=== PATIENT | female | born 1990 | race African-American/Black ===

== ENCOUNTER 2020-04-13 20:03 | Emergency (ER) | payer OTHER, SELFPAY ==
[2020-04-13 20:05] VITALS: BP 148/62; PULSE 92; RESP 16; TEMP 36.8; O2SAT 99
--- NOTE | 2020-04-13 21:30 | PC.NURSE ---
Pt not in room at this time.
== END 2020-04-13 21:30 | disposition left against medical advice (07) ==
PROVIDERS: PCP Obstetrics & Gynecology
DX: L29.9 Pruritus, unspecified (principal)
CPT/HCPCS: 99199

== ENCOUNTER 2020-12-20 09:03 | Outpatient (CLI) | payer OTHER, SELFPAY ==
--- NOTE | ~2020-12-20 | US_ITS ---
EXAMINATION: US OB <= 14 weeks fetus DATE: 12/20/2020 09:36 INDICATION: First trimester dating TECHNIQUE: Real-time pelvic transabdominal and transvaginal ultrasound was performed. COMPARISON: None. FINDINGS: The uterus measures 11.1 x 5.6 x 7.2 cm. There is an intrauterine gestational sac. A yolk sac is identified. heart motion is identified measuring 150 beats per minute (bpm) by M-mode Do ppler. The crown rump length measures 1.3 cm , which correlates with an estimated gestational a ge of 7 weeks and 4 day(s) (+/-) 5 day(s). The right ovary measures 3.2 x 2.7 x 3.2 cm. There is a 2.0 x 1.9 cm cyst with debris in the right ov crescencio. The left ovary measures 1.3 x 2.7 x 1.2 cm. There is normal vascular flow in the ovaries. There is no free fluid in the pelvis. IMPRESSION: 1. Live intrauterine with an estimated gestational age of 7 weeks and 4 day(s) (+/-) 5 day( s) and an estimated delivery date of 08/04/2021. 2. Likely hemorrhagic cyst of the right ovary. Reviewed, dictated and finalized at location A. NT SERVICE AND CONSULTING MANAGER IMPRESSION: 1. Live intrauterine with an estimated gestational age of 7 weeks and 4 day(s) (+/-) 5 day(s) and an estimated delivery date of 08/04/2021. 2. Likely hemorrhagic cyst of the right ovary.
== END 2020-12-20 09:04 | disposition home or self-care (01) ==
LOC: ANHIMG 09:07
PROVIDERS: Visit Provider Obstetrics & Gynecology
DX: Z34.90 Encounter for supervision of normal pregnancy, unspecified, unspecified trimester (principal); Z3A.01 Less than 8 weeks gestation of pregnancy
CPT/HCPCS: 76801

== ENCOUNTER 2021-01-09 09:42 | Emergency (ER) | payer OTHER, SELFPAY ==
--- NOTE | ~2021-01-09 | XR_ITS ---
EXAMINATION: XR chest 1V portable DATE: 01/09/2021 10:21 INDICATION: Shortness of breath. TECHNIQUE: A single frontal view of the chest was obtained. COMPARISON: Chest 2 views 11/16/2019 FINDINGS: The chest demonstrates clear lungs without pneumonia, pleural effusion, or pneumothorax. Th e heart size is normal. IMPRESSION: 1. No acute cardiopulmonary disease. Reviewed, dictated and finalized at location A. E PATROL OFFICER
[2021-01-09 09:50] VITALS: BP 132/70; PULSE 99; RESP 18; TEMP 36.2; O2SAT 100
[2021-01-09 10:44] LABS: Add Urine Microscopic? YES; Appearance Urine Clear (Clear); Bacteria Urine Trace /hpf; Bilirubin Urine Negative (Negative); Blood Urine Negative (Negative); Color Urine Yellow (Yellow); Glucose Urine UA Negative (Negative); Ketones Urine Negative (Negative); Leukocyte Esterase Ur Negative LEU/UL (Negative); Mucus Urine Few /lpf; Nitrate Urine Negative (Negative); Protein Urine Negative (Negative); RBC Urine 0-2 /hpf (0-2); Specific Grav Ur 1.017 (1.001-1.035); Squamous Epithelial Cell Urine Many /hpf (Few); Urobilinogen Urine Negative mg/dL (<2.0); WBC Urine 0-3 /hpf
--- NOTE | 2021-01-09 11:12 | ED.GENADULT ---
HPI - General Adult General Chief complaint: Shortness of Breath/Dyspnea Stated complaint: SOB- 10 weeks Time Seen by Provider: 01/09/21 09:59 Source: patient Mode of arrival: ambulatory Limitations: no limitations History of Present Illness HPI narrative: Patient a 30-year-old female who presents to emergency department for evaluation of mild shortness of breath has been present for 2 weeks noting that she has had a nonproductive cough and had mild scratchy throat which has resolved patient does not take anything for her symptoms on arrival is in no distress does not appear uncomfortable. Patient denies sick contacts. Patient is 10 weeks . Patient is followed by Dr. Pringle. G4. Patient on arrival resting comfortably. Patient denies tobacco abuse or secondhand smoke exposure Related Data Allergies Allergy/AdvReac Type Severity Reaction Status Date / Time No Known Allergies Allergy Unverified 11/16/19 08:37 Review of Systems Review of Systems: All systems reviewed & are unremarkable except as noted in HPI and below PMFSH Past Medical History Medical History No significant past medical history Surgical History Surgical History No significant past surgical history Social History Social History Smoking status: Never smoker Alcohol intake: never Gender identity (if verbalized by the patient): Female Exam Narrative: Exam Narrative: GENERAL: Well-appearing, well-nourished, and in no acute distress. HEAD: Normocephalic, atraumatic. EYES: PERRLA and EOMI. ENT: Nares clear, no rhinorrhea or epistaxis. Mucous membranes moist. CHEST: Clear to auscultation. No respiratory distress. No wheezes rales or rhonchi HEART: Regular rate and rhythm. No murmur heard. Normal peripheral pulses. ABDOMEN: Soft, nontender,distended EXTREMITIES: Normal range of motion. No edema. SKIN: Warm, dry, no rash. NEURO: No focal deficits. Alert and oriented x3. PSYCH: Normal mood and affect. Course Course Emergency Course: Patient in the room in no distress aware of case findings treatment plan diagnosis agreeing to follow-up with primary care and director of sustainability programs as instructed. Vital Signs Vital signs: Vital Signs Temperature 97.1 F L 01/09/21 09:50 Pulse Rate 99 01/09/21 09:50 Respiratory Rate 18 01/09/21 09:50 Blood Pressure 132/70 01/09/21 09:50 Pulse Oximetry 100 01/09/21 09:50 Temperature 97.1 F L 01/09/21 09:50 Pulse Rate 99 01/09/21 09:50 Respiratory Rate 18 01/09/21 09:50 Blood Pressure 132/70 01/09/21 09:50 Pulse Oximetry 100 01/09/21 09:50 Medical Decision Making MDM Narrative Medical decision making narrative: Patient in the room no distress aware of case findings treatment plan diagnosis no hypoxemia no pneumonia resting comfortably in no distress will be discharged home with outpatient follow-up with primary care and director of sustainability programs patient agrees with this plan and feels comfortable Vital Signs Vital Signs: Vital Signs Temperature 97.1 F L 01/09/21 09:50 Pulse Rate 99 01/09/21 09:50 Respiratory Rate 18 01/09/21 09:50 Blood Pressure 132/70 01/09/21 09:50 Pulse Oximetry 100 01/09/21 09:50 Temperature 97.1 F L 01/09/21 09:50 Pulse Rate 99 01/09/21 09:50 Respiratory Rate 18 01/09/21 09:50 Blood Pressure 132/70 01/09/21 09:50 Pulse Oximetry 100 01/09/21 09:50 Lab Data Labs: Lab Results 01/09/21 Range/Units 10:25 Urine Color Yellow (Yellow) Urine Appearance Clear (Clear) Urine pH 6.0 (5.0-9.0) Ur Specific [place] 1.017 (1.001-1.035) Urine Protein Negative (Negative) mg/dL Urine Glucose (UA) Negative (Negative) mg/dL Urine Ketones Negative (Negative) mg/dL Ur Blood (Man) Negative (Negative) Urine Nitrate Negative (N
[2021-01-09 12:18] VITALS: BP 126/80; PULSE 82; RESP 18; O2SAT 100
== END 2021-01-09 12:19 | disposition home or self-care (01) ==
PROVIDERS: Emergency Medicine Emergency Medical Services; Emergency Provider Emergency Medicine
DX: O99.511 Diseases of the respiratory system complicating pregnancy, first trimester (principal); J40 Bronchitis, not specified as acute or chronic; Z3A.10 10 weeks gestation of pregnancy
CPT/HCPCS: 71045; 81001; 81025; 99283

== ENCOUNTER 2021-01-15 14:51 | Outpatient (CLI) | payer OTHER, SELFPAY ==
--- NOTE | ~2021-01-15 | US_ITS ---
EXAMINATION: US OB <= 14 weeks fetus DATE: 01/15/2021 15:21 INDICATION: Normal progesterone levels TECHNIQUE: Real-time transabdominal obstetric ultrasound. FINDINGS: Comparison to ultrasound dated 12/20/2020 The uterus measures 13.2 x 6.7 x 9.3 cm. There is an intrauterine gestational sac, with pole id entified. The crown rump length measures 5.01 cm. heart tones are identified measuring 161 bpm . There is a hemorrhagic cyst of the right ovary, likely complicated corpus luteal cyst measuring 1. 8 cm. IMPRESSION: 1. SL IUP with an EGA of 11 weeks, 2 days (EDC by initial ultrasound of 08/04/2021). Appropriate inter mara growth. 2: Small complicated corpus luteal cyst of the right ovary measuring up to 1.8 cm. Reviewed, dictated and finalized at location A. ING OFFICER IMPRESSION: 1. SL IUP with an EGA of 11 weeks, 2 days (EDC by initial ultrasound of 08/04/20 21). Appropriate interval growth. 2: Small complicated corpus luteal cyst of the right ovary measuring up to 1.8 cm.
== END 2021-01-15 14:52 | disposition home or self-care (01) ==
PROVIDERS: Visit Provider Obstetrics & Gynecology
DX: Z34.91 Encounter for supervision of normal pregnancy, unspecified, first trimester (principal); Z3A.11 11 weeks gestation of pregnancy; R94.7 Abnormal results of other endocrine function studies
CPT/HCPCS: 76801

== ENCOUNTER 2021-02-15 12:36 | Outpatient (CLI) | payer OTHER, SELFPAY ==
--- NOTE | ~2021-02-15 | US_ITS ---
EXAMINATION: US OB follow up DATE: 02/15/2021 13:17 INDICATION: Routine care during early second trimester of . TECHNIQUE: Real-time ultrasound of the pelvis was performed. The interpreting radiologist was not pre sent for the study. COMPARISON: 01/15/2021 FINDINGS: There is a single living fetus in transverse lie. The placenta is posterior and appears to extend ac ross the region of the internal cervical os, either low lying or previa. heart rate is 142 beat s per minute (bpm). The amniotic fluid volume is subjectively normal. The following biometric data were obtained: BPD: 3.4 cm -> 16 weeks 3 days Head circumference: 12.1 cm -> 16 weeks 0 days Abdominal circumference: 9.9 cm -> 16 weeks 0 days Femur length: 1.8 cm -> 15 weeks 3 days These measurements are concordant. Head circumference to abdominal circumference ratio: 1.23 (normal range 1.06-1.34). Estimated weight: 134 g (+/-) 20 g. or 5 oz. (+/-) 1 oz. IMPRESSION: 1. Single living fetus in transverse lie with heart rate of 142 bpm. 2. Posterior placenta which appears either low-lying or previa. Consider further evaluation of the pl acenta with ultrasound later in the second or early third trimester . 3. Estimated weight is 42nd percentile by Hadlock criteria when 08/04/2021 is used as the estima primitivo date of delivery (EDWIGE). Please correlate with clinical information or earlier ultrasounds for mos t accurate EDWIGE. Reviewed, dictated and finalized at location B. IMPRESSION: 1. Single living fetus in transverse lie with heart rate of 142 bpm. 2. Posterior placenta which appears either low-lying or previa. Consider furthe r evaluation of the placenta with ultrasound later in the second or early third trimester . 3. Estimated weight is 42nd percentile by Hadlock criteria when 08/04/2021 is used as the estimated date of delivery (EDWIGE). Please correlate with clinica l information or earlier ultrasounds for most accurate EDWIGE.
== END 2021-02-15 12:37 | disposition home or self-care (01) ==
PROVIDERS: Visit Provider Obstetrics & Gynecology
DX: Z34.90 Encounter for supervision of normal pregnancy, unspecified, unspecified trimester (principal); Z3A.00 Weeks of gestation of pregnancy not specified
CPT/HCPCS: 76816

== ENCOUNTER 2021-03-14 11:02 | Outpatient (CLI) | payer OTHER, SELFPAY ==
--- NOTE | ~2021-03-14 | US_ITS ---
EXAMINATION: US OB follow up DATE: 03/14/2021 11:41 INDICATION: Placenta previa on prior ultrasound, second trimester TECHNIQUE: Real-time ultrasound of the pelvis was performed. The interpreting radiologist was not pre sent for the study. COMPARISON: 02/15/2021 FINDINGS: There is a single living fetus in vertex presentation. The placenta is posterior and 2.9 cm from the internal cervical os. cardiac activity and movement are noted. heart rate is 154 beats per minute (bpm). The amniotic fluid index is subjectively normal. The following biometric data were obtained: Biparietal diameter (BPD): 4.7 cm; head circumference (HC): 17.0 cm; abdominal circumference (AC): 14 .4 cm; femur length (FL): 3.0 cm. These measurements are concordant. Estimated weight is 307 g +/- 46 g, which correlates with the 53rd percentile when 08/04/2021 is used as estimated date of delivery. As single measurements, these parameters are each equal to the following estimated gestational ages w ith ranges of +/- 2 standard deviations: BPD: 20 weeks 3 days +/- 1 weeks 5 days. HC: 19 weeks 5 days +/- 1 weeks 3 days. AC: 19 weeks 5 days +/- 2 weeks 0 days. FL: 19 weeks 4 days +/- 1 weeks 6 days. estimated gestational age based solely on measurements from this exam is 19 weeks 6 days +/- 1 weeks 3 days. IMPRESSION: 1. Single living fetus in vertex presentation. 2. Estimated weight is 307 g +/- 46 g, which correlates with the 53rd percentile when 08/04/2021 is used as estimated date of delivery. 3. Posterior placenta 2.9 cm from the internal cervical os. Reviewed, dictated and finalized at location A. IMPRESSION: 1. Single living fetus in vertex presentation. 2. Estimated weight is 307 g +/- 46 g, which correlates with the 53rd per centile when 08/04/2021 is used as estimated date of delivery. 3. Posterior placenta 2.9 cm from the internal cervical os.
== END 2021-03-14 11:03 | disposition home or self-care (01) ==
PROVIDERS: Visit Provider Obstetrics & Gynecology
DX: Z34.92 Encounter for supervision of normal pregnancy, unspecified, second trimester (principal); Z3A.19 19 weeks gestation of pregnancy
CPT/HCPCS: 76816

== ENCOUNTER 2021-05-14 12:26 | Outpatient (CLI) | payer OTHER, SELFPAY ==
--- NOTE | ~2021-05-14 | US_ITS ---
EXAMINATION: US OB follow up DATE: 05/14/2021 13:03 INDICATION: Routine care abnormal TECHNIQUE: Real-time transabdominal obstetric ultrasound. FINDINGS: Ultrasound dated 03/14/2021 There is a single living fetus in vertex presentation. The placenta is posterior without placenta pr evia. Placental margin measures 6 cm to the cervix. cardiac activity and movement is noted with a heart rate of 150 beats per minute. T he amniotic fluid volume is normal. GRISEL measures 15.5 cm. The following biometric data were obtained: BPD: 70mm corresponds to gestational age 28 weeks 0 days. Head circumference: 250mm corresponds to gestational age 27 weeks 1 days. Abdominal circumference: 247mm corresponds to gestational age 28 weeks 6 days. Femur length: 54mm corresponds to gestational age 28 weeks 3 days. Estimated weight: 1234grams +/- 185grams.] IMPRESSION: 1. Angle living intrauterine and vertex presentation with an estimated gestational age of 28 weeks 2 days by inititial ultrasound. Appropriate interval growth. 2. Normal placenta. 3: Normal GRISEL measures 6 cm. Reviewed, dictated and finalized at location A. IMPRESSION: 1. Angle living intrauterine and vertex presentation with an estimat ed gestational age of 28 weeks 2 days by inititial ultrasound. Appropriate int erval growth. 2. Normal placenta. 3: Normal GRISEL measures 6 cm.
== END 2021-05-14 12:27 | disposition home or self-care (01) ==
LOC: ANHIMG 12:28
PROVIDERS: Visit Provider Obstetrics & Gynecology
DX: Z34.92 Encounter for supervision of normal pregnancy, unspecified, second trimester (principal); Z3A.28 28 weeks gestation of pregnancy
CPT/HCPCS: 76816

== ENCOUNTER 2021-06-13 15:20 | Outpatient (CLI) | payer OTHER, SELFPAY ==
--- NOTE | ~2021-06-13 | US_ITS ---
EXAMINATION: US OB follow up DATE: 06/13/2021 16:14 INDICATION: Routine care. TECHNIQUE: Real-time ultrasound of the pelvis was performed. COMPARISON: Ultrasound 05/14/21, 12/20/2020 FINDINGS: There is a single living fetus in vertex presentation. The placenta is right fundal. heart rat e is 152 beats per minute (bpm). The amniotic fluid index is 12.5 cm, which is normal. The following biometric data were obtained: Biparietal diameter (BPD): 8.0 cm; head circumference (HC): 27.9 cm; abdominal circumference (AC): 27 .5 cm; femur length (FL): 6.2 cm. These measurements are discordant with high cephalic index. Estimated weight is 1798 g +/- 270 g, which correlates with 15th percentile when 08/04/21 is use d as estimated date of delivery. As single measurements, these parameters are each equal to the following estimated gestational ages: BPD: 32 weeks 1 days. HC: 30 weeks 4 days. AC: 31 weeks 4 days. FL: 31 weeks 6 days. estimated gestational age based solely on measurements from this exam is 31 weeks 4 days +/- 2 weeks 1 days. IMPRESSION: 1. Single living fetus in vertex presentation. 2. Estimated weight is 1798 g +/- 270 g, which correlates with 15th percentile when 08/04/21 is used as estimated date of delivery. This date was set by ultrasound on 12/20/2020. 3. High cephalic index. Reviewed, dictated and finalized at location A. IMPRESSION: 1. Single living fetus in vertex presentation. 2. Estimated weight is 1798 g +/- 270 g, which correlates with 15th perc entile when 08/04/21 is used as estimated date of delivery. This date was set by ultrasound on 12/20/2020. 3. High cephalic index.
== END 2021-06-13 15:21 | disposition home or self-care (01) ==
LOC: ANHIMG 15:21
PROVIDERS: Visit Provider Obstetrics & Gynecology
DX: O28.3 Abnormal ultrasonic finding on antenatal screening of mother (principal); Z3A.00 Weeks of gestation of pregnancy not specified
CPT/HCPCS: 76816

== ENCOUNTER 2021-07-09 18:55 | Observation (INO) | payer OTHER, SELFPAY ==
[2021-07-09 18:46] VITALS: BP 149/85; PULSE 108; RESP 22; TEMP 36.7; O2SAT 98
--- NOTE | 2021-07-09 18:53 | PC.NURSE ---
REPORT CALLED TO ELAINE JIMENEZ IN OB, PT TAKEN DIRECTLY TO OB PER W/C.
[2021-07-09 19:16] VITALS: BP 120/71; PULSE 91
[2021-07-09 19:30] VITALS: BP 126/82; PULSE 101
[2021-07-09 19:45] VITALS: BP 129/85; PULSE 118; BMI 30.2
[2021-07-09 20:00] VITALS: BP 118/68; PULSE 100
--- NOTE | 2021-07-16 08:04 | PM.OBTRLD ---
OB - Triage/Final Diagnosis Visit Information Reason for evaluation: threatened labor Comments/Additional reasons for admission: I have assessed the risk for this patient, Tiffaniechristie Herr, and determined that she would benefit from observation care.
== END 2021-07-09 22:08 | disposition home or self-care (01) ==
PROVIDERS: Admitting Provider Obstetrics & Gynecology; Visit Provider Obstetrics & Gynecology
DX: O47.03 False labor before 37 completed weeks of gestation, third trimester (principal); Z3A.36 36 weeks gestation of pregnancy
CPT/HCPCS: G0378; G0379

== ENCOUNTER 2021-07-17 11:31 | Outpatient (RCR) | payer OTHER, SELFPAY ==
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
[2021-07-17 14:10] VITALS: BP 130/60; PULSE 101
== END 2021-08-12 07:32 | disposition home or self-care (01) ==
LOC: ANHOBOP 11:31
PROVIDERS: Visit Provider Obstetrics & Gynecology
DX: O26.893 Other specified pregnancy related conditions, third trimester (principal); Z3A.37 37 weeks gestation of pregnancy; V89.2XXA Person injured in unspecified motor-vehicle accident, traffic, initial encounter
CPT/HCPCS: 59025; 76819

== ENCOUNTER 2021-07-20 12:15 | Inpatient (IN) | payer OTHER, SELFPAY ==
[2021-07-20] VITALS (31 sets, daily range): BP systolic 107–154; BP diastolic 61–138; PULSE 78–152; RESP 16; TEMP 36.6–37.1; O2SAT 98–99; BMI 30.6
--- NOTE | 2021-07-20 12:15 | LDADM ---
This patient, Tiffanie Herr, was admitted to Labor/Delivery/Recovery 105 on 07/20/21 at 12:15. Plans for labor, pain management and were discussed with patient. Patient/family oriented to hospital policies and general routines including ID bracelet, bed and alarms, visiting hours, pain management, procedures, bathroom and other care routines, personal items, smoking policy, room service/diet and guest tray routines, infant security routines, and visiting hours. Patient/Family are encouraged to report perceived risks to care and to ask questions if they do not understand what they are told or what they should do. See OBIX for further documentation.
[2021-07-20] MEDS: LACTATED RINGERS 1,000 ML 125 ML IV CONT (12:49)
[2021-07-20] MEDS: AMPICILLIN 2 GM/NS 100 ML 2 GM/100 ML BAG IVPB (12:50)
[2021-07-20 13:06] LABS: Basophils Percent Auto 0.1 % (0.2-1.2); Eosinophils Absolute Auto 0.1 K/mm3 (0-0.3); Eosinophils Percent Auto 1.8 % (0-4.4); Hematocrit 38.9 % (37.0-47.0); Hemoglobin 12.4 g/dL (12.0-15.0); Immature Granulocyte Absolute 0.05 K/mm3 (0.00-0.031); Immature Granulocyte Percent A 0.7 % (0-0.5); Lymphocytes Absolute Auto 1.07 K/mm3 (0.9-3.2); Lymphocytes Percent Auto 15.6 % (18.3-44.2); Mean Corpuscular HGB Conc 31.9 g/dl (32-36); Mean Corpuscular Volume 87.8 fl (80-100); Mean Platelet Volume 9.9 fl (7.4-10.4); Monocytes Absolute Auto 0.5 K/mm3 (0.1-0.6); Monocytes Percent Auto 7.5 % (2.6-8.5); Neutrophils Absolute Auto 5.1 K/mm3 (1.3-6.7); Neutrophils Percent Auto 74.3 % (45.5-73.1); Platelet Count Result 225 k/mm3 (150-375); Red Blood Count 4.43 M/mm3 (4.2-5.4); Red Cell Distribution Width 14.3 % (11.5-14.5); White Blood Count 6.8 K/mm3 (4.5-10.0)
[2021-07-20 13:55] LABS: HIV 1/2 Ab P24 Ag Result Negative (Negative)
[2021-07-20] MEDS: OXYTOCIN 30 UNITS/NS 500 ML 30 UNITS/500 ML BAG IV CONT (14:55)
--- NOTE | 2021-07-20 17:01 | WPDHPUPDATE1 ---
History and Physical Update Update Date/Time: 07/20/21 17:01 History and Physical has been reviewed, including an updated exam of the patient. There are NO changes in the patient's condition. Risks, benefits, and alternatives have been discussed and questions answered. Patient agrees to proceed with procedure.
--- NOTE | 2021-07-20 17:01 | WPDOBADMIT ---
Obstetrics - Admit Note Admission Note: record reviewed. No pertinent additions to the history and/or any subsequent changes in the physical findings that are not consistent with the expected course of the were found. Additions to the history and/or subsequent changes in the physical findings follow. None.
--- NOTE | 2021-07-20 17:01 | PM.OBPRVD ---
OB - Delivery Note Procedure Route of delivery: Episiotomy description: None Laceration Description: None Specimen: No Quantitative Blood Loss (ml): 200 Anesthesia type: None Disposition: floor Narrative: In prepped and draped usual manner this procedure. Maternal expulsive efforts delivered vertex rest of baby delivered without difficulty. Cord was clamped and cut and placenta delivered spontaneously as well. Cervix vagina vulva were inspected with no lacerations or tears. Uterus was well contracted with no significant bleeding. Immediate postop condition of mother baby both were excellent. [place] Baby Weeks of gestation at delivery: 38 Infant gender: Male
[2021-07-20] MEDS: OXYTOCIN 30 UNITS/NS 500 ML 30 UNITS/500 ML BAG 125 UNITS IV CONT (17:20)
[2021-07-20] MEDS: IBUPROFEN 600 MG TABLET PO (17:26)
[2021-07-20 17:33] LABS: Amphetamine Screen Urine Negative (Negative); Barbiturate Screen Urine Negative (Negative); Benzodiazepines Screen Urine Negative (Negative); Cannabinoid Screen Urine Negative (Negative); Cocaine Screen Urine Negative (Negative); Methadone Screen Urine Negative (Negative); Opiate Screen Urine Negative (Negative); Phencyclidine Screen Urine Negative (Negative)
[2021-07-20] MEDS: WITCH HAZEL 40 PADS 1 PAD TOPICAL (19:26)
[2021-07-20] MEDS: BENZOCAINE 20% AER SPR (*SP) 56 GM CAN 1 SPRAY TOPICAL (19:27)
--- NOTE | 2021-07-20 19:39 | OBPPTRN ---
Patient transferred to post room #282 via wheelchair. Support person present. Oriented to unit, room, information board, rooming in, admission packet and security measures. Patient verbalizes understanding.
[2021-07-20] MEDS: ACETAMINOPHEN 325 MG TABLET 650 MG PO (21:51)
[2021-07-21] MEDS: IBUPROFEN 600 MG TABLET PO ×3 (00:32→17:07)
[2021-07-21 04:00] VITALS: BP 115/73; PULSE 83; RESP 16; TEMP 36.9; O2SAT 97
[2021-07-21] MEDS: ACETAMINOPHEN 325 MG TABLET 650 MG PO ×3 (04:02→17:06)
[2021-07-21 04:19] LABS: Hematocrit 30.2 % (37.0-47.0); Hemoglobin 9.7 g/dL (12.0-15.0)
[2021-07-21 09:45] VITALS: BP 130/72; PULSE 96; RESP 18; TEMP 36.6; O2SAT 100
[2021-07-21] MEDS: DOCUSATE SODIUM 100 MG CAPSULE PO ×2 (09:45→17:08)
[2021-07-21] MEDS: MULTIVIT/MIN/PREN/FOL AC/IRON TABLET 1 TAB PO (09:46)
[2021-07-21] MEDS: POLYSACCHARIDE IRON COMPLEX 150 MG CAPSULE PO ×2 (09:46→17:07)
--- NOTE | 2021-07-21 11:46 | PM.OBDSVD ---
DS: Admitting Diagnosis Discharge Date 07/22/2021 Admitting Diagnosis OB - DS: Summary OB Procedures : None OB Procedures Intrapartum: Spontaneous Vag Delivery OB Procedures: : None Time Spent with Patient Time attestation: Total time spent providing and/or coordinating discharge services: DS: Data Data Completed and Pending Labs on day of discharge: Labs from last 24 hours 07/21/21 07/20/21 07/20/21 04:02 17:03 12:51 WBC RBC Hgb 9.7 L Hct 30.2 L MCV MCH MCHC RDW Plt Count MPV Immature Gran % (Auto) Neut % (Auto) Lymph % (Auto) Baker % (Auto) Eos % (Auto) Baso % (Auto) Lymph # (Auto) Baker # (Auto) Eos # (Auto) Baso # (Auto) Abs Immat Gran (auto) Absolute Neuts (auto) Absolute Nucleated RBC Nucleated RBC % Urine Opiates Screen Negative Urine Methadone Screen Negative Ur Barbiturates Screen Negative Ur Phencyclidine Scrn Negative Ur Amphetamine Screen Negative U Benzodiazepines Scrn Negative Urine Cocaine Screen Negative U Cannabinoids Screen Negative RPR HIV 1&2 Ab/P24 Ag 4thGn Negative Blood Type Antibody Screen 07/20/21 07/20/21 07/20/21 12:51 12:51 12:51 WBC 6.8 RBC 4.43 Hgb 12.4 Hct 38.9 MCV 87.8 MCH 28.0 MCHC 31.9 L RDW 14.3 Plt Count 225 MPV 9.9 Immature Gran % (Auto) 0.7 H Neut % (Auto) 74.3 H Lymph % (Auto) 15.6 L Baker % (Auto) 7.5 Eos % (Auto) 1.8 Baso % (Auto) 0.1 L Lymph # (Auto) 1.07 Baker # (Auto) 0.5 Eos # (Auto) 0.1 Baso # (Auto) 0.0 Abs Immat Gran (auto) 0.05 H Absolute Neuts (auto) 5.1 Absolute Nucleated RBC 0.0 Nucleated RBC % 0.0 Urine Opiates Screen Urine Methadone Screen Ur Barbiturates Screen Ur Phencyclidine Scrn Ur Amphetamine Screen U Benzodiazepines Scrn Urine Cocaine Screen U Cannabinoids Screen RPR Pending HIV 1&2 Ab/P24 Ag 4thGn Blood Type A Positive Antibody Screen Negative Discharge Plan Discharge Discharging Clinician: Erwin Bryant Patient Disposition: Home, Self-Care Activity: as tolerated Diet: as tolerated and regular Discharge Instructions: Education: Mom and Baby Guide Given to: Mother Follow-Up: Call your delivering provider's office for an appointment to be seen in: 3 Weeks Mom and baby should come to the [facility] for the follow-up appointment. Appointment Date/Time: July at 10:00 am What to expect at your follow-up visit: Blood Pressure Check Physical Assessment Call [phone] if you are unable to keep your appointment time. BREAST CARE: * Wear a snug supportive bra. * For engorgement discomfort: Breast Feeding: * Apply warm moist washcloths * Express milk as needed to relieve engorgement * Wear loose clothing Bottle Feeding: * May apply ice packs * For sore nipples: * Identify correct latch-on * Apply warm moist washcloths before and after nursing * Air dry nipples after nursing * May apply Lansinoh cream to nipples EPISIOTOMY/PERINEAL CARE: * Until bleeding stops, use your fahad bottle after urinating * Change your pad frequently throughout the day ACTIVITY: * Rest as much as possible. * Do not exercise or lift anything heavier than your baby (such as laundry or other children.) * Avoid stairs or driving as much as possible. * Do not put anything into the vagina. No douching, tampons, or sexual activity until seen by physician. NOTIFY PHYSICIAN IF YOU HAVE ANY QUESTIONS OR IF ANY OF THE FOLLOWING SYMPTOMS OCCUR: * If your episiotomy or incision becomes red, swollen, or more painful than what you have experienced in the hospital. * If your vaginal bleeding becomes foul smelling. * If your vaginal bleeding becomes mo
--- NOTE | 2021-07-21 12:59 | PC.NURSE ---
Addendum entered by Yair Yoon RN 07/21/21 13:01: actual time of note was 0830 Original Note: PT introductions made and plan of care discussed per post , pain management, breast feeding, daily care activities. PT verbalized understanding of such care. PT recipient of such instructions and education this shift and no barriers to learning identified at this time. PT received instructions per one to one instructions, mom baby care guide and demonstration and pt verbalized understanding of such care.
[2021-07-21 17:15] VITALS: BP 132/76; PULSE 80; PULSE 92; RESP 16; RESP 18; TEMP 36.8; O2SAT 100
[2021-07-21 19:15] VITALS: BP 123/74; PULSE 99; RESP 16; TEMP 37.1
[2021-07-22] MEDS: IBUPROFEN 600 MG TABLET PO (06:04)
[2021-07-22 08:00] VITALS: BP 131/77; PULSE 87; RESP 18; TEMP 36.6
--- NOTE | 2021-07-22 08:00 | PC.NURSE ---
Patient was given the opportunity to view the discharge video Mother & Baby Care, The First Two Weeks and to ask questions. Patient declined viewing the video and has been given the mother/baby guide for home reference.
[2021-07-22] MEDS: DOCUSATE SODIUM 100 MG CAPSULE PO (08:34)
[2021-07-22] MEDS: MULTIVIT/MIN/PREN/FOL AC/IRON TABLET 1 TAB PO (08:34)
[2021-07-22] MEDS: WITCH HAZEL 40 PADS 1 PAD TOPICAL (08:35)
[2021-07-22] MEDS: BENZOCAINE 20% AER SPR (*SP) 56 GM CAN 1 SPRAY TOPICAL (08:35)
[2021-07-22] MEDS: LANOLIN (LANSINOH) 7.5 GM CREAM 1 APPLIC TOPICAL (08:35)
[2021-07-22] MEDS: POLYSACCHARIDE IRON COMPLEX 150 MG CAPSULE PO (08:35)
[2021-07-22] MEDS: ACETAMINOPHEN 325 MG TABLET 650 MG PO (08:39)
[2021-07-22 09:29] LABS: Rapid Plasma Reagin Non-Reactive (NonReactive)
--- NOTE | 2021-07-22 10:30 | PC.NURSE ---
Self care and infant care discharge instructions given to pt. including follow up visit date and time. Pt. verbalized understanding. No questions or concerns voiced. Very pleasant and cooperative. FOB at side.
--- NOTE | 2021-07-22 12:15 | PC.NURSE ---
Mother called out for assist with feeding. Mother reports infant is sleepy and makes eager attempts to latch with good bursts of nursing for a few seconds and will fall asleep. will freq. cry and refuse to latch. Mother has made attempts and is supplementing each feeding. Discussed establishing in the late may be more difficult due to their immaturity, infant may be less alert, have less stamina, and have greater difficulty with latch, suck, and swallow. ?s feeding may impact mother?s milk supply, pumping may need to be initiated /continued until milk supply is well established and infant is able to effective without supplementation. is able to freely thrust tongue past gum ridge and flange both lips. Skin is intact on both nipples, no redness and bruising noted. Nipple care reviewed of lanolin after feedings, warm compresses as needed, gel pads provided and reviewed care and cleaning. Reviewed feeding cues, frequencies, duration of feedings, feeding elimination flow sheet, and signs of adequate intake. Demonstrated stimulation techniques to wake infant for feeding. Assisted with infant to breast. Reviewed positioning/alignment in cross cradle, holding breast in ?U? hold and guided asymmetrical latch on. Reviewed rational for each. After several attempts able to latch correctly. Infant nursed eagerly with steady draws and occasional swallowing noted for bursts followed with long pausing. Reviewed signs of a correct latch, effective nursing and suck swallow ratio. Infant was able to maintain latch without discomfort to mother. Suggested mother stimulate while feeding to increase stimulate, increase intake and to assist with maintaining deep latch. Demonstrated how to adjust latch more deeply while feeding if needed Discussed the difference of effective vs ineffective feeding. Reviewed infant is latching with good burst of suckling, he is not feeding consistently with adequate milk transfer at this time and continues to need to be supplement after . Feeding options discussed, Feeding Plan is for mother to put infant to breast each feeding for up to 15 minutes, then pace feed supplement 25 mls and pump for 10-15 minutes. Parents are comfortable with supplementation and pumping. Discussed increasing supplementation as infant requires to satisfactions. Reviewed paced feeding and suggested to stop when infant is satisfied, as long as infant is having required output. With increased supplementation may not want to feed for 4 hours. Mother will continue to pump on feeding schedule and will increase session to 20 minutes if pumping every 4 hours. Reviewed once mother?s milk is established and infant is effectively feeding infant may have increased intake with nursing. If is effective feeding with long draws and frequent swallowing noted , infant may be ready to decrease/discontinue supplementation. Advised not to discontinue supplement until ICP, Follow-Up RN or LC has a pre/post weighted evaluation of feeding. Reviewed transition to breast milk, signs of adequate intake, and engorgement/relief. Instructed to call ICP if intake/output less than required. Reviewed regular medications mother is taking. Information provided per Aniya. Reviewed community resources on the [employer] website and in the Mom[employer]Baby guide. Information on outpatient services provided. Mother has no further questions at this time. Assisted mother with a double electric pump thru her insurance. Instructions given on breast pump care and usage, pumping schedule, nipple care, and collection and storage of breast milk. Encouraged [id number], breast massage and manual expression to stimulate supply. Assessed patient for correct flange size, placement and draw. Patient verbalizes and demonstrates understanding of instru
[2021-07-25 10:18] VITALS: BP 124/81; PULSE 82; RESP 18; TEMP 36.9; O2SAT 100
--- NOTE | 2021-08-07 18:14 | WPDHPUPDATE1 ---
History and Physical Update Update Date/Time: 08/07/21 18:14 History and Physical has been reviewed, including an updated exam of the patient. There are NO changes in the patient's condition. Risks, benefits, and alternatives have been discussed and questions answered. Patient agrees to proceed with procedure.
== END 2021-07-22 14:00 | disposition home or self-care (01) | DRG 560 ==
LOC: ANHLDR 12:33 → ANHOB2 20:39
PROVIDERS: Admitting Provider Obstetrics & Gynecology; Visit Provider Obstetrics & Gynecology
DX: O99.824 Streptococcus B carrier state complicating childbirth (principal); O76 Abnormality in fetal heart rate and rhythm complicating labor and delivery; Z3A.37 37 weeks gestation of pregnancy; Z37.0 Single live birth
CPT/HCPCS: 36415; 80307; 85014; 85018; 85025; 86592; 86703; 86850; 86900; 86901; A9270; G0432; J0290; J2590; J7120

== ENCOUNTER 2021-11-09 00:42 | Emergency (ER) | payer OTHER, SELFPAY ==
[2021-11-09 00:47] VITALS: BP 126/74; PULSE 87; RESP 18; TEMP 36.4; O2SAT 98
--- NOTE | 2021-11-09 01:40 | ED.GENADULT ---
HPI - General Adult General Chief complaint: Upper Respiratory Infection Stated complaint: Flu like symptoms Time Seen by Provider: 11/09/21 01:10 History of Present Illness HPI narrative: 31-year-old female presenting to the emergency department for evaluation of flulike symptoms. Patient states she developed a cough yesterday. The cough did cause her to have a posttussive emesis. Patient states she has also had some diarrhea. Upon arrival to the emerge department patient denies any nausea vomiting or diarrhea. Patient denies any shortness of breath. Patient has had no significant coughing in the ED. Patient is not vaccinated Related Data Home Medications Medication Instructions Recorded Confirmed prenat.vits,shashi,[id number] 1 tablet PO DAILY 07/17/21 07/20/21 Allergies Allergy/AdvReac Type Severity Reaction Status Date / Time metronidazole [From Flagyl] Allergy Nausea and Verified 11/09/21 01:06 Vomiting Review of Systems Review of Systems: CONSTITUTIONAL: Subjective fever/chills EYES: Denies visual changes, redness, or discharge. ENT: Denies rhinorrhea, congestion, sore throat, or otalgia. CARDIOVASCULAR: Denies chest pain, palpitations, or edema. RESPIRATORY: Cough. GASTROINTESTINAL: Denies abdominal pain, nausea. Did have an episode of posttussive emesis and episode of diarrhea GENITOURINARY: Denies dysuria or hematuria. SKIN: Denies rash or itching. MUSCULOSKELETAL: Denies back pain, joint pain. Patient does report myalgias and body aches. NEUROLOGIC: Denies headache, numbness, or weakness. PSYCHIATRIC: Denies anxiety or depression. PMFSH Past Medical History Medical History No significant past medical history Surgical History Surgical History No significant past surgical history Social History Social History Smoking status: Never smoker Alcohol intake: never Substance use: never Gender identity (if verbalized by the patient): Female Spiritual care concerns: No Exam Narrative: APPEARANCE: Well appearing, no pain in distress, well-nourished. HEAD: normocephalic, atraumatic. EYES: PERRLA/EOMI, conjunctivae clear. NOSE: Normal no drainage EARS:TMS clear with good light reflex. THROAT: Pharynx clear, no exudate. NECK: Supple. No adenopathy, no masses. RESPIRATORY: Airway patent, respirations nonlabored. Clear to auscultation bilaterally, no rales, rhonchi, wheezing. CARDIOVASCULAR: Regular rate and rhythm without murmurs rubs or gallops. ABDOMINAL: Soft, nontender, nondistended, normal bowel sounds MUSCULOSKELETAL: Moves all extremities. Strength/ROM intact, No edema, No calf tenderness. NEURO: Alert. Cranial nerves II through XII intact. Good gait. Good coordination SKIN: Warm, dry. Normal Color PSYCHIATRIC: Normal affect/mood. Course Vital Signs Vital signs: Vital Signs Temperature 97.6 F 11/09/21 00:47 Pulse Rate 87 11/09/21 00:47 Respiratory Rate 18 11/09/21 00:47 Blood Pressure 126/74 11/09/21 00:47 Pulse Oximetry 98 11/09/21 00:47 Temperature 97.6 F 11/09/21 00:47 Pulse Rate 92 11/09/21 02:05 Respiratory Rate 16 11/09/21 02:05 Blood Pressure 135/85 11/09/21 02:05 Pulse Oximetry 100 11/09/21 02:05 Medical Decision Making Vital Signs Vital Signs: Vital Signs Temperature 97.6 F 11/09/21 00:47 Pulse Rate 87 11/09/21 00:47 Respiratory Rate 18 11/09/21 00:47 Blood Pressure 126/74 11/09/21 00:47 Pulse Oximetry 98 11/09/21 00:47 Temperature 97.6 F 11/09/21 00:47 Pulse Rate 92 11/09/21 02:05 Respiratory Rate 16 11/09/21 02:05 Blood Pressure 135/85 11/09/21 02:05 Pulse Oximetry 100 11/09/21 02:05 Lab Data Lab results reviewed: Yes I reviewed the patient's lab results. Labs: Lab Results 11/09/21 Range/Units 01:19
[2021-11-09 02:05] VITALS: BP 135/85; PULSE 92; RESP 16; O2SAT 100
== END 2021-11-09 02:04 | disposition home or self-care (01) ==
PROVIDERS: Emergency Provider Emergency Medicine
DX: R05.9 Cough, unspecified (principal); Z20.822 Contact with and (suspected) exposure to COVID-19
CPT/HCPCS: 87804; 99283; C9803; U0003; U0005

== ENCOUNTER 2022-11-07 15:02 | Emergency (ER) | payer OTHER, SELFPAY ==
[2022-11-07 15:06] VITALS: BP 138/71; PULSE 73; RESP 13; TEMP 37.1; O2SAT 100
[2022-11-07 15:46] LABS: Influenza A QL RT-PCR Negative (Negative); Influenza B QL RT-PCR Negative (Negative); RSV RNA, RT-PCR Negative (Negative); SARS-CoV-2 RNA PCR Negative
--- NOTE | 2022-11-07 17:30 | ED.URI ---
HPI - URI/Sore Throat General Chief Complaint: Upper Respiratory Infection Stated Complaint: cough, trouble breathing Time Seen by Provider: 11/07/22 16:24 History of Present Illness HPI Narrative: Patient is a 32-year-old female who presents ER with cough. Ongoing for last week. Worse when she enters cold air. She feels like she coughs the point that she has trouble breathing. Has occasional wheezing. She has sinus congestion and sore throat. No chest pain or chest pressure. Has history of bronchitis and is otherwise healthy. Related Data Home Medications Medication Instructions Recorded Confirmed prenat.vits,shashi,[id number] 1 tablet PO DAILY 07/17/21 07/20/21 Allergies Allergy/AdvReac Type Severity Reaction Status Date / Time metronidazole [From Flagyl] Allergy Nausea and Verified 11/09/21 01:06 Vomiting Review of Systems Review of Systems: All systems reviewed & are unremarkable except as noted in HPI and below Constitutional: Constitutional: Denies chills, Denies fatigue and Denies fever(s) Cardiovascular: Cardiovascular: Denies chest pain, Denies rapid heart rate and Denies radiating jaw, neck or arm pain Respiratory: Respiratory: Denies chest congestion, Reports cough, Reports dyspnea and Reports wheezing Gastrointestinal: Gastrointestinal: Denies abdominal pain, Denies nausea and Denies vomiting PMFSH Past Medical History Medical History No significant past medical history Surgical History Surgical History No significant past surgical history Social History Social History Smoking status: Never smoker Alcohol intake: never Substance use: never Gender identity (if verbalized by the patient): Female Spiritual care concerns: No Exam Narrative: GENERAL: Well-appearing, well-nourished, and in no acute distress. HEAD: Normocephalic, atraumatic. ENT: Mucous membranes moist. CHEST: Clear to auscultation. No respiratory distress. HEART: Regular rate and rhythm. Normal peripheral pulses. EXTREMITIES: Normal range of motion. No edema. NEURO: Alert and oriented x3. PSYCH: Normal mood and affect. Course Course Emergency Course: Discharged with steroids and albuterol. Vital Signs Vital signs: Vital Signs Temperature 98.7 F 11/07/22 15:06 Pulse Rate 73 11/07/22 15:06 Respiratory Rate 13 11/07/22 15:06 Blood Pressure 138/71 11/07/22 15:06 Pulse Oximetry 100 11/07/22 15:06 Oxygen Delivery Room Air 11/07/22 15:06 Temperature 98.7 F 11/07/22 15:06 Pulse Rate 73 11/07/22 15:06 Respiratory Rate 13 11/07/22 15:06 Blood Pressure 138/71 11/07/22 15:06 Pulse Oximetry 100 11/07/22 15:06 Oxygen Delivery Room Air 11/07/22 16:19 MDM - URI/Sore Throat Lab Data Labs: Lab Results 11/07/22 Range/Units 15:06 Influenza A (RT-PCR) Negative (Negative) Influenza B (RT-PCR) Negative (Negative) RSV (RT-PCR) Negative (Negative) SARS-CoV-2 RNA (RT-PCR) Negative Discharge Plan Discharge Clinical Impression: Bronchitis Patient Disposition: Home, Self-Care Condition: Stable Instructions: Acute Bronchitis (ED) Additional Instructions: Return the ER if you have worsening shortness of breath, you cannot keep down food or water, you lose consciousness, you have additional concerns. Prescriptions: New prednisone 50 mg tablet 50 mg PO DAILY Qty: 7 0RF albuterol sulfate 90 mcg/actuation HFA aerosol inhaler 2 puff INHALATION QID PRN (Reason: shortness of breath or wheezing) Qty: 8 0RF No Action prenat.vits,shashi,[id number] Tablet 1 tablet PO DAILY benzonatate 100 mg capsule 100 mg PO BID PRN (Reason: cough) Qty: 14 0RF Follow-up/Referrals: PHYSICIAN,CENSUS TAKER [Primary Care Provider] - Rafat Ortiz MD [y
== END 2022-11-07 17:37 | disposition home or self-care (01) ==
PROVIDERS: Emergency Provider Emergency Medicine
DX: J40 Bronchitis, not specified as acute or chronic (principal); Z20.822 Contact with and (suspected) exposure to COVID-19
CPT/HCPCS: 87637; 99283

== ENCOUNTER 2023-04-29 09:40 | Emergency (ER) | payer OTHER, SELFPAY ==
--- NOTE | ~2023-04-29 | XR_ITS ---
EXAMINATION: XR chest 2V 04/29/2023 10:26 INDICATION: Cough for 3 months PROCEDURE: 2 view chest COMPARISON: 01/09/2021 FINDINGS: The lungs are clear. The cardiomediastinal silhouette is within normal limits. There are no pleural effusions. There is no pneumothorax suspected. IMPRESSION: 1: NO ACUTE CARDIOPULMONARY DISEASE. Reviewed, dictated and finalized at location []
[2023-04-29 09:45] VITALS: BP 129/67; PULSE 72; RESP 18; TEMP 36.8; O2SAT 100
[2023-04-29 09:50] VITALS: O2SAT 100
[2023-04-29 10:01] VITALS: BP 108/64; O2SAT 100
--- NOTE | 2023-04-29 10:01 | ED.URI ---
HPI - URI/Sore Throat General Chief Complaint: Upper Respiratory Infection Stated Complaint: Cough Time Seen by Provider: 04/29/23 09:42 History of Present Illness HPI Narrative: 32-year-old female here for evaluation of cough x3 months. Patient states it is a dry nagging cough occasionally associated with some shortness of breath. Patient recently had some congestion but has since resolved. She has not taken a COVID or flu test. No chest pain, leg swelling, nausea or vomiting, abdominal pain. Related Data Home Medications Medication Instructions Recorded Confirmed prenat.vits,shashi,[id number] 1 tablet PO DAILY 07/17/21 07/20/21 Allergies Allergy/AdvReac Type Severity Reaction Status Date / Time metronidazole [From Flagyl] Allergy Nausea and Verified 04/29/23 09:55 Vomiting Review of Systems Review of Systems: Gen.: Denies fevers or chills Eyes: Denies eye pain or visual change ENT: Denies congestion Respiratory: Reports cough CV: Denies chest pain or palpitations GI: Denies abdominal pain nausea, emesis or diarrhea denies burning, urgency, frequency or hematuria Musculoskeletal: Denies back pain or muscle pain Neuro: Denies numbness, tingling, weakness or focal weakness Skin: Denies rash Except as documented, all other systems reviewed and negative PMFSH Past Medical History Medical History No significant past medical history Surgical History Surgical History No significant past surgical history Social History Social History Smoking status: Never smoker Alcohol intake: never Substance use: never Gender identity (if verbalized by the patient): Female Spiritual care concerns: No Exam Narrative: APPEARANCE: Well appearing, no pain in distress, well-nourished. Head: Normocephalic and atraumatic. EYES: PERRLA/EOMI, conjunctivae clear NOSE: No nasal drainage EARS: External ear normal in appearance THROAT: Oropharynx is clear. Mucous membranes are moist. NECK: Supple. No adenopathy, no masses. RESPIRATORY: Coughing throughout exam. Airway patent, respirations nonlabored. Clear to auscultation bilaterally, no rales, rhonchi, wheezing. CARDIOVASCULAR: Regular rate and rhythm without murmurs, rubs, or gallops. ABDOMINAL: Normoactive bowel sounds. Soft, nontender, nondistended. No rebound tenderness or guarding. MUSCULOSKELETAL: Extremities are warm and well-perfused. Moves all extremities well. No edema. NEURO: Normal speech. No focal neurologic deficits. SKIN: Skin is warm and dry. No rashes. PSYCHIATRIC: Normal affect/mood.. Course Vital Signs Vital signs: Vital Signs Temperature 98.2 F 04/29/23 09:45 Pulse Rate 72 04/29/23 09:45 Respiratory Rate 18 04/29/23 09:45 Blood Pressure 129/67 04/29/23 09:45 Pulse Oximetry 100 04/29/23 09:45 Oxygen Delivery Room Air 04/29/23 09:45 Temperature 98.2 F 04/29/23 09:45 Pulse Rate 72 04/29/23 11:09 Respiratory Rate 18 04/29/23 11:09 Blood Pressure 118/72 04/29/23 11:09 Pulse Oximetry 99 04/29/23 11:09 Oxygen Delivery Room Air 04/29/23 09:50 MDM - URI/Sore Throat MDM Narrative Medical decision making narrative: 32-year-old female here for evaluation of nonproductive cough for the past 3 months. She is nontoxic in appearance and has normal vital signs. Heart/lungs CTA. She is PERC negative so PE is thought to be unlikely. Chest x-ray is clear. Feeling improved after neb treatment and Tessalon Perles. Likely bronchitis, appears his cough is somewhat chronic patient has frequent ED visits for this, did discuss other etiologies of chronic cough such as GERD and need for PMD follow-up. She will be sent home with albuterol and Tessalon Perles as needed. We discussed return precautions and she voiced und
[2023-04-29] MEDS: BENZONATATE 100 MG CAPSULE PO (10:02)
[2023-04-29] MEDS: ALBUTEROL SULFATE NEB 2.5 MG/3 ML INH INHALATION (10:06)
[2023-04-29 10:07] VITALS: PULSE 61; RESP 18
[2023-04-29 10:31] VITALS: BP 121/63; O2SAT 99
[2023-04-29 11:09] VITALS: BP 118/72; PULSE 72; RESP 18; O2SAT 99
== END 2023-04-29 11:11 | disposition home or self-care (01) ==
PROVIDERS: Emergency Provider Physician Assistant
DX: J40 Bronchitis, not specified as acute or chronic (principal)
CPT/HCPCS: 71046; 94640; 99283; A9270